=== PATIENT | female | born 1985 | race Caucasian/White ===

== ENCOUNTER → 2020-01-11 16:40 | Outpatient (BNVA) | payer SELFPAY | PROVIDERS: Family Provider Nurse Practitioner Family; PCP Family Medicine; Visit Provider Nurse Practitioner Family | DX: N92.6 Irregular menstruation, unspecified (principal) | CPT/HCPCS: 81025 ==

== ENCOUNTER 2020-02-25 08:15 | Outpatient (CLI) | payer SELFPAY ==
--- NOTE | 2020-02-25 08:45 | US_ITS ---
WS: [id number] PELVIC ULTRASOUND REASON FOR VISIT: irregular periods TECHNIQUE: Grayscale and Doppler transabdominal ultrasound of the pelvis. FINDINGS: Uterus measures 8.9 cm x 5.3 cm x 5.6 cm, right ovary measures 3.0 cm x 2.7 cm x 2.4 cm, and left ova ry measures 3.0 cm x 2.8 cm x 1.8 cm. A 3.54 x 4.22 x 3.54 cm. Cyst is seen replacing the left ovary. Normal blood flow is seen in both ovaries. There is no evidence of fistula changes seen on today's exam. The endometrium measures 0.57 cm. US/US pelvic complete* [id number] IMPRESSION: Prominent left ovarian cyst [place] no fistulas are identified today. Normal flow in both ovaries.
== END 2020-02-25 08:16 | disposition home or self-care (01) ==
LOC: RAD 08:19
PROVIDERS: Family Provider Nurse Practitioner Family; PCP Family Medicine; Visit Provider Nurse Practitioner Family
DX: N92.6 Irregular menstruation, unspecified (principal)
CPT/HCPCS: 76856

== ENCOUNTER → 2021-09-16 11:07 | Outpatient (BNVA) | payer SELFPAY | PROVIDERS: Family Provider Nurse Practitioner Family; PCP Family Medicine; Visit Provider Emergency Medicine | DX: J02.9 Acute pharyngitis, unspecified (principal); Z20.818 Contact with and (suspected) exposure to other bacterial communicable diseases | CPT/HCPCS: 87071; 87880 ==

== ENCOUNTER → 2022-02-01 14:41 | Outpatient (BNVA) | payer SELFPAY | PROVIDERS: Family Provider Nurse Practitioner Family; PCP Family Medicine; Visit Provider Emergency Medicine | DX: J02.9 Acute pharyngitis, unspecified (principal); Z20.818 Contact with and (suspected) exposure to other bacterial communicable diseases | CPT/HCPCS: 87880 ==

== ENCOUNTER 2022-08-16 00:24 | Emergency (ER) | payer SELFPAY ==
[2022-08-16 00:26] VITALS: BP 169/101; PULSE 94; RESP 18; TEMP 36.6; O2SAT 98; BMI 29.7
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
[2022-08-16] MEDS: ketorolac 60 mg/2 mL INJ IM (00:56)
[2022-08-16] MEDS: bacitracin ointment Pkt 1 EACH TOPICAL (00:56)
[2022-08-16] MEDS: HYDROcodone-acetaminophen 10-325 mg Tablet 1 TAB PO (00:56)
[2022-08-16 01:08] VITALS: PULSE 98; RESP 18; O2SAT 98
== END 2022-08-16 01:25 | disposition home or self-care (01) ==
PROVIDERS: Emergency Provider Nurse Practitioner Family
DX: T23.252A Burn of second degree of left palm, initial encounter (principal); T23.212A Burn of second degree of left thumb (nail), initial encounter; X08.8XXA Exposure to other specified smoke, fire and flames, initial encounter; F17.210 Nicotine dependence, cigarettes, uncomplicated
CPT/HCPCS: 96372; 99284; A6446; J1885

== ENCOUNTER → 2025-05-09 14:24 | Outpatient (BNVA) | payer MEDICAID, SELFPAY | PROVIDERS: Visit Provider Nurse Practitioner | DX: N91.2 Amenorrhea, unspecified (principal) | CPT/HCPCS: 80053; 84443 ==